=== PATIENT | male | born 1950 | race Caucasian/White ===

== ENCOUNTER 2022-10-25 19:16 | Inpatient (IN) | payer OTHER ==
[2022-10-25] MEDS ORDERED: Albuterol/Ipratropium 3.0-0.5 MG/3 ML Neb Soln NEB ONE (19:51)
[2022-10-25 20:03] LABS: BASOPHILS ABSOLUTE AUTO 0.06 K/uL (0.00-0.10); BASOPHILS PERCENT AUTO 0.6 % (0.1-1.3); EOSINOPHILS ABSOLUTE AUTO 0.05 K/uL (0.00-0.40); EOSINOPHILS PERCENT AUTO 0.5 % (0.0-5.4); HEMATOCRIT 50.6 % (38.4-49.7); HEMOGLOBIN 17.5 g/dL (12.9-16.9); IMMATURE GRAN PERCENT AUTO 0.2 % (0.0-0.7); LYMPHOCYTES ABSOLUTE AUTO 1.32 K/uL (0.8-3.3); LYMPHOCYTES PERCENT AUTO 12.9 % (11.4-47.7); MEAN CORPUSCULAR HEMOGLOBIN 32.3 pg (31.6-35.5); MEAN CORPUSCULAR HGB CONC 34.6 g/dL (31.6-35.5); MEAN CORPUSCULAR VOLUME 93.4 fL (81.4-99.0); MONOCYTES ABSOLUTE AUTO 0.93 K/uL (0.20-0.90); MONOCYTES PERCENT AUTO 9.1 % (3.3-12.6); NEUTROPHILS ABSOLUTE AUTO 7.84 K/uL (1.0-7.6); NEUTROPHILS PERCENT AUTO 76.7 % (40.0-78.1); PLATELET COUNT,PLT 304 K/uL (130-375); RED BLOOD CELL COUNT 5.42 M/uL (4.14-5.76); WHITE BLOOD CELL COUNT,WBC 10.2 K/uL (3.2-11.0)
[2022-10-25 20:06] LABS: IMMATURE GRAN ABSOLUTE AUTO 0.02 K/uL (0.00-0.23)
[2022-10-25] MEDS ORDERED: methylPREDNISolone Sodium Succinate 125 MG/2 ML SDV IVPUSH ONE (20:22)
[2022-10-25 20:24] LABS: A/G RATIO 0.9 (1.2-2.2); ALANINE AMINOTRANSFERASE,ALT 28 U/L (12-78); ALBUMIN 3.9 g/dL (3.4-5.0); ALKALINE PHOSPHATASE 99 U/L (46-116); ASPARTATE AMNIOTRANSFERASE,AST 27 U/L (15-37); BILIRUBIN TOTAL 0.5 mg/dL (0.2-1.0); BLOOD UREA NITROGEN,BUN 10 mg/dL (7-18); CALCIUM 9.5 mg/dL (8.5-10.1); CARBON DIOXIDE,CO2 34 mmol/L (21-32); CHLORIDE,CL 97 mmol/L (100-108); ESTIMATED GFR 81 mL/min (>60); GLUCOSE RANDOM 168 mg/dL (74-106); LIPASE 93 U/L (73-393); POTASSIUM,K 3.6 mmol/L (3.6-5.2); PROTEIN TOTAL,TP 8.3 g/dL (6.4-8.2); SODIUM,NA 138 mmol/L (140-148)
[2022-10-25 20:25] LABS: ANION GAP 10.6 mmol/L (5.0-14.0)
[2022-10-25] MEDS ORDERED: Iopamidol 612 MG/ML 100 ML Bottle IV SCH (21:00)
[2022-10-25] MEDS ORDERED: Sodium Chloride 0.9% 50 ML IV SCH (21:00)
[2022-10-25] MEDS ORDERED: Acetaminophen 325 MG Tab PO PRN (23:18)
[2022-10-25] MEDS ORDERED: Ondansetron 4 MG/2 ML SDV IV PRN (23:18)
[2022-10-25] MEDS ORDERED: Magnesium Hydroxide 400 MG/5 ML Susp 30 ML Cup PO PRN (23:18)
[2022-10-25] MEDS ORDERED: Enoxaparin 40 MG/0.4 ML Syringe SUBCUT SCH (23:18)
[2022-10-25] MEDS ORDERED: Albuterol 0.083% 2.5 MG/3 ML Neb Soln NEB PRN (23:18)
[2022-10-25] MEDS ORDERED: Ondansetron 4 MG Tab.DIS PO PRN (23:18)
[2022-10-25] MEDS ORDERED: Melatonin 3 MG Tab PO PRN (23:18)
[2022-10-26] MEDS ORDERED: Nicotine Polacrilex 2 MG Gum CHEW PRN (00:58)
[2022-10-26] MEDS: Doxycycline 100 MG in Sodium Chloride 0.9% 100 ML IV SCH ×3 (00:59→23:30)
[2022-10-26] MEDS: Albuterol/Ipratropium 3.0-0.5 MG/3 ML Neb Soln NEB SCH ×4 (02:40→20:01)
[2022-10-26 04:44] LABS: HEMATOCRIT 50.8 % (38.4-49.7); MEAN CORPUSCULAR HEMOGLOBIN 31.5 pg (31.6-35.5); MEAN CORPUSCULAR HGB CONC 33.5 g/dL (31.6-35.5); MEAN CORPUSCULAR VOLUME 94.2 fL (81.4-99.0); RED BLOOD CELL COUNT 5.39 M/uL (4.14-5.76); WHITE BLOOD CELL COUNT,WBC 7.6 K/uL (3.2-11.0)
[2022-10-26 05:06] LABS: CALCIUM 9.1 mg/dL (8.5-10.1); EST CRCL DRUG DOSING (CG) 66.5 mL/min; POTASSIUM,K 3.7 mmol/L (3.6-5.2)
[2022-10-26 05:07] LABS: ANION GAP 11.7 mmol/L (5.0-14.0)
[2022-10-26] MEDS: Pantoprazole 40 MG Tab.CR PO SCH (07:27)
[2022-10-26] MEDS: predniSONE 20 MG Tab PO SCH (07:28)
[2022-10-26] MEDS: Enoxaparin 40 MG/0.4 ML Syringe SUBCUT SCH ×2 (20:01→20:03)
[2022-10-27] MEDS: Albuterol/Ipratropium 3.0-0.5 MG/3 ML Neb Soln NEB SCH ×3 (03:49→13:59)
[2022-10-27] MEDS: Pantoprazole 40 MG Tab.CR PO SCH (09:05)
[2022-10-27] MEDS: predniSONE 20 MG Tab PO SCH (09:06)
[2022-10-27] MEDS ORDERED: Albuterol 90 MCG/6.7 GM Inhaler INH PRN (09:31)
== END 2022-10-27 15:13 | disposition home or self-care (01) | DRG 206 ==
LOC: JP.ED 19:16 → JP.MS 22:44
PROVIDERS: ADMIT Internal Medicine; ATTEND Internal Medicine
DX: J44.1 Chronic obstructive pulmonary disease with (acute) exacerbation (principal); R09.02 Hypoxemia; F17.210 Nicotine dependence, cigarettes, uncomplicated; K57.90 Diverticulosis of intestine, part unspecified, without perforation or abscess without bleeding; Z79.899 Other long term (current) drug therapy; Z20.822 Contact with and (suspected) exposure to COVID-19; Z88.0 Allergy status to penicillin
CPT/HCPCS: 36415; 71046 ×2; 71260; 74177; 80053; 83690; 85025; 85379; 87635; 94640; 96374; 99285; J2930; J3490; Q9967; 80048; 85027; 87070; 87077; 87186; 87205; 94761; 99222; 99232; 99239; 99284; A9270-GY; J1650; J7512; J7620; U0002

== ENCOUNTER 2024-02-04 21:57 | Emergency (ER) | payer OTHER ==
[2024-02-05 00:07] LABS: HEMATOCRIT 27.3 % (38.4-49.7); MEAN CORPUSCULAR HEMOGLOBIN 33.2 pg (31.6-35.5); MEAN CORPUSCULAR HGB CONC 36.6 g/dL (31.6-35.5); MEAN CORPUSCULAR VOLUME 90.7 fL (81.4-99.0); PLATELET COUNT,PLT 270 K/uL (130-375); RED BLOOD CELL COUNT 3.01 M/uL (4.14-5.76); WHITE BLOOD CELL COUNT,WBC 3.8 K/uL (3.2-11.0)
[2024-02-05] MEDS: Sodium Chloride 0.9% 1,000 ML IV SCH (00:20)
[2024-02-05 00:29] LABS: BAND ABSOLUTE MAN 0.65 K/uL; BAND PERCENT MAN 17 % (5-11); EOSINOPHILS ABSOLUTE MAN 0.08 K/uL (0.00-0.40); EOSINOPHILS PERCENT MAN 2 % (2-4); LYMPHOCYTES ABSOLUTE MAN 0.23 K/uL (0.8-3.3); LYMPHOCYTES PERCENT MAN 6 % (24-44); MONOCYTES ABSOLUTE MAN 0.34 K/uL (0.20-0.90); MONOCYTES PERCENT MAN 9 % (2-6); NEUTROPHILS ABSOLUTE MAN 2.51 K/uL (1.0-7.6); SEG NEUTROPHILS PERCENT MAN 66 % (36-66)
[2024-02-05 00:35] LABS: A/G RATIO 0.6 (1.2-2.2); ALANINE AMINOTRANSFERASE,ALT 106 U/L (12-78); ALBUMIN 2.4 g/dL (3.4-5.0); ALKALINE PHOSPHATASE 333 U/L (46-116); ASPARTATE AMNIOTRANSFERASE,AST 66 U/L (15-37); BILIRUBIN TOTAL 2.9 mg/dL (0.2-1.0); BLOOD UREA NITROGEN,BUN 14 mg/dL (7-18); CALCIUM 9.2 mg/dL (8.5-10.1); CARBON DIOXIDE,CO2 24 mmol/L (21-32); CHLORIDE,CL 94 mmol/L (100-108); CREATININE 1.1 mg/dL (0.8-1.3); EST CRCL DRUG DOSING (CG) 57.59 mL/min; ESTIMATED GFR 72 mL/min (>60); GLUCOSE RANDOM 223 mg/dL (74-106); PROTEIN TOTAL,TP 6.4 g/dL (6.4-8.2); SODIUM,NA 129 mmol/L (140-148)
[2024-02-05 02:04] LABS: APPEARANCE,URINE CLEAR (CLEAR); BILIRUBIN,URINE SMALL (NEGATIVE); COLOR,URINE YELLOW (YELLOW); GLUCOSE,URINE NEGATIVE (NEGATIVE); KETONES,URINE NEGATIVE (NEGATIVE); LEUKOCYTE ESTERASE,URINE NEGATIVE (NEGATIVE); NITRITE,URINE NEGATIVE (NEGATIVE); OCCULT BLOOD,URINE NEGATIVE (NEGATIVE); PROTEIN,URINE TRACE mg/dL (NEGATIVE)
[2024-02-05 02:38] LABS: AMORPHOUS SEDIMENT,URINE FEW; BACTERIA,URINE FEW; EPITHELIAL CELLS,URINE FEW; MUCUS,URINE NOT SEEN; RBC,URINE 0-5 (0-5); WBC,URINE 0-5 (0-5)
== END 2024-02-05 03:16 | disposition home or self-care (01) ==
LOC: JP.ED 21:57
DX: I95.1 Orthostatic hypotension (principal); E86.0 Dehydration; D64.9 Anemia, unspecified; C34.90 Malignant neoplasm of unspecified part of unspecified bronchus or lung; C78.89 Secondary malignant neoplasm of other digestive organs; J44.9 Chronic obstructive pulmonary disease, unspecified; F17.210 Nicotine dependence, cigarettes, uncomplicated; Z79.51 Long term (current) use of inhaled steroids; Z79.899 Other long term (current) drug therapy; Z88.0 Allergy status to penicillin
CPT/HCPCS: 36415; 71045; 80053; 81001; 84484; 85025; 96360; 96361; 99285; J7030

== ENCOUNTER 2024-02-28 09:04 | Inpatient (IN) | payer OTHER ==
[2024-02-28 10:19] LABS: BASE EXCESS VENOUS 1.8 mm/L; BICARBONATE,VENOUS 23.5 mmol/L; CARBOXYHEMOGLOBIN 5.4 % (0.0-1.6); METHEMOGLOBIN 0.8 %; O2 SATURATION VENOUS 85.9; OXYHEMOGLOBIN 80.6 %; PCO2 VENOUS 28.6 mm/Hg; PH,VENOUS 7.525 (7.350-7.450); TOTAL HEMOGLOBIN 11.9 g/dL (13.5-18.0)
[2024-02-28 10:20] LABS: BASOPHILS ABSOLUTE AUTO 0.03 K/uL (0.00-0.10); BASOPHILS PERCENT AUTO 0.4 % (0.1-1.3); EOSINOPHILS ABSOLUTE AUTO 0.03 K/uL (0.00-0.40); EOSINOPHILS PERCENT AUTO 0.4 % (0.0-5.4); HEMATOCRIT 32.8 % (38.4-49.7); HEMOGLOBIN 11.2 g/dL (12.9-16.9); IMMATURE GRAN ABSOLUTE AUTO 0.09 K/uL (0.00-0.23); IMMATURE GRAN PERCENT AUTO 1.2 % (0.0-0.7); LYMPHOCYTES ABSOLUTE AUTO 0.55 K/uL (0.8-3.3); LYMPHOCYTES PERCENT AUTO 7.3 % (11.4-47.7); MEAN CORPUSCULAR HEMOGLOBIN 32.7 pg (31.6-35.5); MEAN CORPUSCULAR HGB CONC 34.1 g/dL (31.6-35.5); MEAN CORPUSCULAR VOLUME 95.6 fL (81.4-99.0); MONOCYTES ABSOLUTE AUTO 0.43 K/uL (0.20-0.90); MONOCYTES PERCENT AUTO 5.7 % (3.3-12.6); NEUTROPHILS ABSOLUTE AUTO 6.44 K/uL (1.0-7.6); PLATELET COUNT,PLT 263 K/uL (130-375); RED BLOOD CELL COUNT 3.43 M/uL (4.14-5.76); WHITE BLOOD CELL COUNT,WBC 7.6 K/uL (3.2-11.0)
[2024-02-28] MEDS: Sodium Chloride 0.9% 1,000 ML IV ONE ×2 (10:28→14:45)
[2024-02-28 10:31] LABS: APPEARANCE,URINE CLEAR (CLEAR); BILIRUBIN,URINE NEGATIVE (NEGATIVE); COLOR,URINE YELLOW (YELLOW); GLUCOSE,URINE NEGATIVE (NEGATIVE); KETONES,URINE NEGATIVE (NEGATIVE); LEUKOCYTE ESTERASE,URINE NEGATIVE (NEGATIVE); NITRITE,URINE NEGATIVE (NEGATIVE); OCCULT BLOOD,URINE NEGATIVE (NEGATIVE); PROTEIN,URINE NEGATIVE (NEGATIVE)
[2024-02-28 10:38] LABS: AMORPHOUS SEDIMENT,URINE MODERATE; BACTERIA,URINE RARE; EPITHELIAL CELLS,URINE NOT SEEN; MUCUS,URINE MODERATE; RBC,URINE NOT SEEN (0-5); WBC,URINE 0-5 (0-5)
[2024-02-28 10:41] LABS: CORONAVIRUS COVID-19 NAA NEGATIVE (NEGATIVE); INFLUENZA A NAA NEGATIVE (NEGATIVE); INFLUENZA B NAA NEGATIVE (NEGATIVE); RESPIRATORY SYNCYTIAL VIR NAA NEGATIVE (NEGATIVE)
[2024-02-28 10:47] LABS: A/G RATIO 0.5 (1.2-2.2); ALANINE AMINOTRANSFERASE,ALT 44 U/L (12-78); ALBUMIN 2.4 g/dL (3.4-5.0); ALKALINE PHOSPHATASE 303 U/L (46-116); ANION GAP 13.7 mmol/L (5.0-14.0); ASPARTATE AMNIOTRANSFERASE,AST 41 U/L (15-37); BLOOD UREA NITROGEN,BUN 7 mg/dL (7-18); CALCIUM 9.2 mg/dL (8.5-10.1); CARBON DIOXIDE,CO2 26 mmol/L (21-32); CHLORIDE,CL 94 mmol/L (100-108); EST CRCL DRUG DOSING (CG) 63.35 mL/min; ESTIMATED GFR 80 mL/min (>60); GLUCOSE RANDOM 105 mg/dL (74-106); POTASSIUM,K 3.7 mmol/L (3.6-5.2); PROTEIN TOTAL,TP 7.3 g/dL (6.4-8.2); SODIUM,NA 130 mmol/L (140-148)
[2024-02-28] MEDS ORDERED: Sodium Chloride 0.9% 10 ML Syringe FLUSH PRN (11:12)
[2024-02-28] MEDS ORDERED: Iopamidol 755 Mg/ML 100 ML Bottle IV SCH (11:15)
[2024-02-28] MEDS: Sodium Chloride 0.9% 1,000 ML IV SCH ×2 (12:50→18:41)
[2024-02-28] MEDS ORDERED: Naloxone 0.4 MG/ML SDV IVPUSH PRN (12:58)
[2024-02-28] MEDS: HYDROmorphone 0.5 MG/0.5 ML Syringe IVPUSH PRN (13:02)
[2024-02-28] MEDS ORDERED: Magnesium Hydroxide 400 MG/5 ML Susp 30 ML Cup PO PRN (17:56)
[2024-02-28] MEDS ORDERED: Albuterol 0.083% 2.5 MG/3 ML Neb Soln NEB PRN (17:56)
[2024-02-28] MEDS ORDERED: Sennosides/Docusate Sodium 50-8.6 MG Tab PO PRN (17:56)
[2024-02-28] MEDS ORDERED: Ondansetron 4 MG/2 ML SDV IV PRN (17:56)
[2024-02-28] MEDS ORDERED: Ondansetron 4 MG Tab.DIS PO PRN (17:56)
[2024-02-28] MEDS ORDERED: Acetaminophen 325 MG Tab PO PRN (17:56)
[2024-02-28] MEDS: Sodium Chloride 0.9% 100 ML IV ONE (18:03)
[2024-02-28] MEDS: Diatrizoate Meglumine/Diatrizoate Sodium 37% 120 ML Bottle PO SCH (18:44)
[2024-02-28] MEDS: Diatrizoate Meglumine/Diatrizoate Sodium 37% 120 ML Bottle PO ONE (18:49)
[2024-02-28] MEDS: Formoterol/Mometasone 200-5 MCG 8.8 GM Inhaler IH SCH (21:11)
[2024-02-29 04:55] LABS: HEMATOCRIT 31.9 % (38.4-49.7); HEMOGLOBIN 10.7 g/dL (12.9-16.9); MEAN CORPUSCULAR HGB CONC 33.5 g/dL (31.6-35.5); MEAN CORPUSCULAR VOLUME 98.5 fL (81.4-99.0); RED BLOOD CELL COUNT 3.24 M/uL (4.14-5.76); WHITE BLOOD CELL COUNT,WBC 8.5 K/uL (3.2-11.0)
[2024-02-29 05:23] LABS: A/G RATIO 0.5 (1.2-2.2); ALANINE AMINOTRANSFERASE,ALT 34 U/L (12-78); ALBUMIN 2.1 g/dL (3.4-5.0); ALKALINE PHOSPHATASE 248 U/L (46-116); ASPARTATE AMNIOTRANSFERASE,AST 31 U/L (15-37); BILIRUBIN TOTAL 0.8 mg/dL (0.2-1.0); BLOOD UREA NITROGEN,BUN 6 mg/dL (7-18); CARBON DIOXIDE,CO2 26 mmol/L (21-32); CHLORIDE,CL 101 mmol/L (100-108); CREATININE 0.9 mg/dL (0.8-1.3); EST CRCL DRUG DOSING (CG) 64.62 mL/min; ESTIMATED GFR 91 mL/min (>60); GLUCOSE RANDOM 89 mg/dL (74-106); POTASSIUM,K 3.3 mmol/L (3.6-5.2); PROTEIN TOTAL,TP 6.6 g/dL (6.4-8.2); SODIUM,NA 134 mmol/L (140-148)
[2024-02-29 05:26] LABS: ANION GAP 10.3 mmol/L (5.0-14.0)
[2024-02-29] MEDS: Pantoprazole 40 MG Tab.CR PO SCH (07:24)
[2024-02-29] MEDS: SYNTHROID 75 MCG PO SCH (08:58)
[2024-02-29] MEDS: WIXELA INH SCH (08:59)
[2024-02-29] MEDS: TIOTROPIUM BROMIDE INH SCH (08:59)
[2024-02-29] MEDS ORDERED: Tiotropium Bromide 4 GM Inhalation Spray (2.5mcg/1 dose; 10 doses) INH SCH (09:00)
[2024-02-29] MEDS ORDERED: Levothyroxine 25 MCG Tab PO SCH (09:00)
== END 2024-02-29 12:35 | disposition home or self-care (01) | DRG 389 ==
LOC: JP.ED 09:04 → JP.MS 17:23
PROVIDERS: ADMIT Internal Medicine; ATTEND Internal Medicine
DX: K56.600 Partial intestinal obstruction, unspecified as to cause (principal); C22.1 Intrahepatic bile duct carcinoma; C34.90 Malignant neoplasm of unspecified part of unspecified bronchus or lung; D84.821 Immunodeficiency due to drugs; K56.7 Ileus, unspecified; J44.9 Chronic obstructive pulmonary disease, unspecified; K59.09 Other constipation; E03.9 Hypothyroidism, unspecified; I95.9 Hypotension, unspecified; F17.210 Nicotine dependence, cigarettes, uncomplicated; Z88.0 Allergy status to penicillin; Z79.890 Hormone replacement therapy; Z79.899 Other long term (current) drug therapy
CPT/HCPCS: 0241U; 36415; 71045; 71275; 74018; 74019; 74177; 78226; 80053; 81001; 82803; 83605; 83690; 84145; 84484; 85025; 85027; 85379; 86140; 87040; 93005; 94640; 99222; 99232; 87077; A9270-GY; A9537; J1170; J2805; J7030; Q9963

== ENCOUNTER 2024-03-13 17:12 | Emergency (ER) | payer OTHER ==
[2024-03-13] MEDS: Ondansetron 4 MG/2 ML SDV IVPUSH ONE (18:21)
[2024-03-13] MEDS: fentaNYL 50 MCG/ML SDV IVPUSH ONE ×2 (18:21→20:54)
[2024-03-13] MEDS: Sodium Chloride 0.9% 1,000 ML IV SCH (18:21)
[2024-03-13 18:30] LABS: CALCIUM IONIZED,ISTAT 1.08 mmol/L (1.12-1.32); HEMATOCRIT,ISTAT 33 % (36-48); PH ARTERIAL,ISTAT 7.57 (7.35-7.45); POTASSIUM,ISTAT 4.9 mmol/L (3.5-4.9); SODIUM,ISTAT 135 mmol/L (140-148)
[2024-03-13 18:30] LABS: HEMOGLOBIN 10.8 g/dL (12.9-16.9); MEAN CORPUSCULAR HEMOGLOBIN 32.6 pg (31.6-35.5); MEAN CORPUSCULAR HGB CONC 33.8 g/dL (31.6-35.5); MEAN CORPUSCULAR VOLUME 96.7 fL (81.4-99.0); PLATELET COUNT,PLT 390 K/uL (130-375); RED BLOOD CELL COUNT 3.31 M/uL (4.14-5.76); WHITE BLOOD CELL COUNT,WBC 18.5 K/uL (3.2-11.0)
[2024-03-13 18:31] LABS: ALLEN TEST, ISTAT PERFORMED; BASE EXCESS ARTERIAL,ISTAT 2 mmol/L (-2-3); HCO3 ARTERIAL,ISTAT 24.5 mmol/L (22.0-26.0); O2 SATURATION ARTERIAL,ISTAT 96 % (95-98); PCO2 ARTERIAL,ISTAT 26.7 mmHG (35-45); PO2 ARTERIAL,ISTAT 71 mmHg (80-105); TCO2 ARTERIAL,ISTAT 25 mmol/L (23-27)
[2024-03-13 18:47] LABS: BAND PERCENT MAN 7 % (5-11); METAMYELOCYTE ABSOLUTE MAN 0.37 K/uL; METAMYELOCYTE PERCENT MAN 2 %; MONOCYTES ABSOLUTE MAN 0.19 K/uL (0.20-0.90); MONOCYTES PERCENT MAN 1 % (2-6); NEUTROPHILS ABSOLUTE MAN 16.65 K/uL (1.0-7.6); SEG NEUTROPHILS PERCENT MAN 90 % (36-66)
[2024-03-13 18:49] LABS: A/G RATIO 0.5 (1.2-2.2); ALANINE AMINOTRANSFERASE,ALT 65 U/L (12-78); ALBUMIN 2.5 g/dL (3.4-5.0); ALKALINE PHOSPHATASE 289 U/L (46-116); ASPARTATE AMNIOTRANSFERASE,AST 57 U/L (15-37); BILIRUBIN TOTAL 0.9 mg/dL (0.2-1.0); BLOOD UREA NITROGEN,BUN 39 mg/dL (7-18); CALCIUM 10.5 mg/dL (8.5-10.1); CARBON DIOXIDE,CO2 25 mmol/L (21-32); CHLORIDE,CL 101 mmol/L (100-108); CREATININE 1.2 mg/dL (0.8-1.3); ESTIMATED GFR 65 mL/min (>60); GLUCOSE RANDOM 159 mg/dL (74-106); POTASSIUM,K 4.6 mmol/L (3.6-5.2); PROTEIN TOTAL,TP 7.5 g/dL (6.4-8.2); SODIUM,NA 138 mmol/L (140-148)
[2024-03-13 18:51] LABS: ANION GAP 16.6 mmol/L (5.0-14.0)
[2024-03-13] MEDS ORDERED: Lidocaine 4% Top Soln LTA 4 ML Syringe Kit TOP ONE (19:16)
[2024-03-13] MEDS ORDERED: Lidocaine 4% 5 ML Amp NEB ONE (19:30)
[2024-03-13] MEDS: Meropenem 1 GM in Sodium Chloride 0.9% 100 ML IV ONE (19:31)
[2024-03-13 19:49] LABS: APPEARANCE,URINE CLEAR (CLEAR); BILIRUBIN,URINE NEGATIVE (NEGATIVE); COLOR,URINE YELLOW (YELLOW); GLUCOSE,URINE NEGATIVE (NEGATIVE); KETONES,URINE TRACE mg/dL (NEGATIVE); LEUKOCYTE ESTERASE,URINE NEGATIVE (NEGATIVE); NITRITE,URINE NEGATIVE (NEGATIVE); OCCULT BLOOD,URINE NEGATIVE (NEGATIVE); PROTEIN,URINE NEGATIVE (NEGATIVE)
[2024-03-13 19:57] LABS: AMORPHOUS SEDIMENT,URINE NOT SEEN; BACTERIA,URINE RARE; EPITHELIAL CELLS,URINE RARE; MUCUS,URINE NOT SEEN; RBC,URINE 0-5 (0-5); WBC,URINE 0-5 (0-5)
[2024-03-13] MEDS: Lidocaine 2% 20 ML MDV ONE (20:08)
[2024-03-13] MEDS: Lidocaine 2% 5 ML SDV INJECT ONE (20:10)
[2024-03-13] MEDS: Albuterol/Ipratropium 3.0-0.5 MG/3 ML Neb Soln NEB ONE (22:18)
[2024-03-14] MEDS: fentaNYL 50 MCG/ML SDV IVPUSH PRN (00:20)
[2024-03-14] MEDS: Albuterol/Ipratropium 3.0-0.5 MG/3 ML Neb Soln NEB ONE ×3 (00:25→10:36)
[2024-03-14] MEDS: Sodium Chloride 0.9% 1,000 ML IV SCH (00:27)
[2024-03-14] MEDS: methylPREDNISolone Sodium Succinate 125 MG/2 ML SDV IVPUSH ONE (01:06)
[2024-03-14] MEDS: Meropenem 1 GM in Sodium Chloride 0.9% 100 ML IV ONE (07:32)
[2024-03-14] MEDS: LORazepam 2 MG/ML SDV IVPUSH ONE (13:16)
[2024-03-14] MEDS: Sodium Chloride 0.9% 1,000 ML IV ONE (13:16)
== END 2024-03-14 17:10 ==
LOC: JP.ED 17:12
DX: E86.0 Dehydration (principal); K56.7 Ileus, unspecified; J18.9 Pneumonia, unspecified organism; J44.9 Chronic obstructive pulmonary disease, unspecified; K21.9 Gastro-esophageal reflux disease without esophagitis; E03.9 Hypothyroidism, unspecified; F17.210 Nicotine dependence, cigarettes, uncomplicated; Z79.899 Other long term (current) drug therapy; Z88.0 Allergy status to penicillin
CPT/HCPCS: 36415; 36600; 43752; 71045; 74176; 80053; 81001; 82803; 83605; 83690; 84145; 85025; 87040; 87635; 93005; 94640; 96361; 96365; 96366; 96375; 96376; 99285; J2060; J2185; J2405; J2919; J3010; J3490; J7030; 93010; J7620; U0002